=== PATIENT | female | born 1990 | race Hispanic/Latino ===

== ENCOUNTER 2017-10-22 06:35 | Day surgery (SDC) | payer MEDICAID ==
[~2017-10-22] VITALS: Ht 167.6 cm; Wt 54.8 kg
[~2017-10-22 06:35] MED LIST: ESOM40CA PO; SODIUM CHLORIDE 0.9% 1000ML 1,000 ML IV ONE
[2017-10-22 07:07] VITALS: BP 93/56
[2017-10-22] MEDS ORDERED: PROPOFOL 10 MG/ML 20ML VIAL IV ONE ×2 (07:59)
== END 2017-10-22 08:44 | disposition home or self-care (01) ==
LOC: DAH 06:35 → ENDO 06:35
PROVIDERS: ATTEND Internal Medicine
DX: K29.50 Unspecified chronic gastritis without bleeding (principal); K31.89 Other diseases of stomach and duodenum; K21.9 Gastro-esophageal reflux disease without esophagitis; Z79.899 Other long term (current) drug therapy; Z98.51 Tubal ligation status
CPT/HCPCS: 43239; 88305; 88312; A4606; J2704 ×2; J7030